=== PATIENT | male | born 1980 | race American Indian/Alaskan Native ===

== ENCOUNTER 2021-11-02 09:50 | Emergency (ER) | payer SELFPAY ==
[2021-11-02] MEDS ORDERED: KETOROLAC 10 MG TAB PO ONE (14:53)
--- NOTE | 2021-11-02 14:58 | Emergency Department Report ---
- General Chief complaint: Skin/Abscess/Foreign Body Stated complaint: POSS SPIDER BITE OR ABCESS Time Seen by Provider: 11/02/21 14:44 Source: patient Mode of arrival: Ambulatory Limitations: No Limitations - History of Present Illness Initial comments: 41-year-old black male with no past medical history resents to the emergency department for evaluation of possible insect bite to right shoulder. He states that he has had some itching to the area for few days and when he was scratching today, he has some drainage come out. He denies fever, pain, swelling, and redness. MD complaint: insect bite/sting -: days(s) Tetanus Up to Date: yes (3-4) Location: RUE (Right shoulder) Severity scale (0 -10): 0 Associated symptoms: itching Treatments Prior to Arrival: none - Related Data Previous Rx's Medication Instructions Recorded Last Taken Type Ciprofloxacin HCl [Ciprofloxacin 500 mg PO BID #14 tablet 08/02/15 Unknown Rx TAB] Mupirocin [Bactroban 2%] 1 applic TP BID 7 Days #1 tube 11/02/21 Unknown Rx Allergies Allergy/AdvReac Type Severity Reaction Status Date / Time Penicillins Allergy Unknown Verified 12/09/15 11:19 Abscess Boil HPI - HPI Chief Complaint: Skin/Abscess/Foreign Body Stated Complaint: POSS SPIDER BITE OR ABCESS Time Seen by Provider: 11/02/21 14:44 Home Medications: Previous Rx's Medication Instructions Recorded Last Taken Type Ciprofloxacin HCl [Ciprofloxacin 500 mg PO BID #14 tablet 08/02/15 Unknown Rx TAB] Mupirocin [Bactroban 2%] 1 applic TP BID 7 Days #1 tube 11/02/21 Unknown Rx Allergies/Adverse Reactions: Allergies Allergy/AdvReac Type Severity Reaction Status Date / Time Penicillins Allergy Unknown Verified 12/09/15 11:19 ED Review of Systems ROS: Stated complaint: POSS SPIDER BITE OR ABCESS Other details as noted in HPI Comment: All other systems reviewed and negative Constitutional: denies: chills, fever Respiratory: denies: shortness of breath Cardiovascular: denies: chest pain, palpitations Gastrointestinal: denies: abdominal pain, nausea, vomiting Neurological: denies: headache ED Past Medical Hx - Surgical History Additional Surgical History: R arm - Social History Smoking Status: Current Every Day Smoker Substance Use Type: Alcohol - Medications Home Medications: Home Medications Medication Instructions Recorded Confirmed Last Taken Type Ciprofloxacin HCl [Ciprofloxacin 500 mg PO BID #14 tablet 08/02/15 Unknown Rx TAB] Mupirocin [Bactroban 2%] 1 applic TP BID 7 Days #1 tube 11/02/21 Unknown Rx ED Physical Exam - General Limitations: No Limitations General appearance: alert, in no apparent distress - Head Head exam: Present: atraumatic, normocephalic - Eye Eye exam: Present: normal appearance. Absent: conjunctival injection - Neck Neck exam: Present: normal inspection. Absent: tenderness - Respiratory Respiratory exam: Absent: respiratory distress - Cardiovascular Cardiovascular Exam: Present: regular rate - GI/Abdominal GI/Abdominal exam: Absent: distended - Expanded Upper Extremity Exam Right Shoulder Exam: Present: tenderness, erythema. Absent: normal inspection ( noted to have area that is slightly erythematous with holding center compatible with insect bite. No edema noted. No drainage noted. Patient states area is slightly tender. Area partially dry), swelling, abrasion, laceration, ecchymosis Vascular: Present: normal capillary refill. Absent: vascular compromise, Pallo, pulse deficit radial art - Back Exam Back exam: Present: normal inspection - Neurological Exam Neurological exam: Present: alert, oriented X3 - Psychiatric Psychiatric exam: Present: normal affect, normal mood - Skin Skin exam: Present: warm, dry, intact, normal color ED Course Vital Signs 11/02/21 10:44 Temperature 98.7 F Pulse Rate 66 Respiratory 18 Rate Blood Pressure 138/82 [Right] O2 Sat by Pulse 97 Oximetry ED Medical Decision Making - Medical Decision Making 41-year-old black male with no past medical history resents to the emergency department for evaluation of possible insect bite to right shoulder. He states that he has had some itching to the area for few days and when he was scratching today, he has some drainage come out. He denies fever, pain, swelling, and redness. Exam consistent with probable insect bite, but area is mostly dry with minimal e rythema no edema and no drainage noted. Patient will be treated with one-time dose of Toradol in the emergency department to improve erythema and tenderness and discharged home with Bactroban ointment to place to area twice a day for the next week. He is advised to take medication as prescribed and follow-up with primary care provider if no improvement or worsening symptoms. He is advised to return to the emergency department as needed. He verbalizes understanding of and agreement with plan of care. Critical care attestation.: If time is entered above; I have spent that time in minutes in the direct care of this critically ill patient, excluding procedure time. ED Disposition Clinical Impression: Insect bite Qualifiers: Encounter type: initial encounter Site of insect bite: shoulder Laterality: right Qualified Code(s): S40.261A - Insect bite (nonvenomous) of right shoulder, initial encounter Disposition: HOME / SELF CARE / HOMELESS Is pt being admited?: No Does the pt Need Aspirin: No Condition: Stable Instructions: Insect Bite, Adult, [id number] Additional Instructions: Take medications as prescribed. Follow up with primary care provider if no improvement or worsening symptoms. Return to Ed as needed. Prescriptions: Mupirocin [Bactroban 2%] 1 applic TP BID 7 Days #1 tube Referrals: INO CLAYTON MD [Referring] - 3-5 Days Time of Disposition: 14:58
[2021-11-02 15:19] VITALS: BP 126/89
== END 2021-11-02 15:12 | disposition home or self-care (01) ==
LOC: ED 09:50
DX: S40.261A Insect bite (nonvenomous) of right shoulder, initial encounter (principal); F17.200 Nicotine dependence, unspecified, uncomplicated; Z88.0 Allergy status to penicillin; W57.XXXA Bitten or stung by nonvenomous insect and other nonvenomous arthropods, initial encounter; Y93.89 Activity, other specified; Y92.89 Other specified places as the place of occurrence of the external cause; Y99.8 Other external cause status
CPT/HCPCS: 99282